=== PATIENT | female | born 1985 | race Asian ===

== ENCOUNTER 2020-01-09 17:25 | Emergency (ER) | payer OTHER, SELFPAY ==
[2020-01-09 17:55] VITALS: BP 127/82; PULSE 72; RESP 16; TEMP 36.6; O2SAT 99; BMI 27.5
--- NOTE | 2020-01-09 18:22 | DI.US.S_ITS ---
PROCEDURE: US OB <= 14 WEEKS FETUS INDICATIONS: BLEEDING OUTSIDE/PRIOR DATING DATA: Last menstrual period (LMP): 11/03/19. LMP-based estimated date of delivery (MARIBEL): 09/16/20. First dating scan (date and location): 01/09/20. Estimated date of delivery (MARIBEL) from first dating scan: 09/08/20. TECHNIQUE: Real-time scanning was performed of the fetus and maternal pelvic organs, with image documentation. Endovaginal scanning was also performed to better visualize the fetus and maternal ovaries. COMPARISON: None. FINDINGS: Embryo: There is a intrauterine gestational sac measuring approximately 5 mm and correlating with approximately 5 weeks and 2 days in estimated sonographic gestational age. No pole is identified. cardiac activity is not visualized. No yolk sac visualized. There is an adjacent subchorionic hemorrhage measuring 2.1 x 2.0 x 2.3 cm in size. Measurement variability in dating: +/- 4 weeks by LMP, +/- 7 days by mean sac diameter (use before 6 weeks gestation if crown-rump length not able to be measured), +/- 5 days by crown-rump length (up to 8 weeks 6 days gestation), +/- 7 days by crown-rump length (up to 13 weeks 6 days gestation). Maternal organs: Left ovaries not visualized. Right ovarian corpus luteal cyst. IMPRESSION: 1. Single intrauterine gestational sac measuring approximately 5 weeks and 2 days. No pole or yolk sac identified. No cardiac activity. Recommend continued clinical surveillance with consideration of serial quantitative hCG measurements to document expected rate of rise. A followup ultrasound in 14 days is also recommended to document expected progression of . 2. Small subchorionic hemorrhage. Dictated by: Michael Farfan M.D. on 01/09/2020 at 21:25 Approved by: Michael Farfan M.D. on 01/09/2020 at 21:32
[2020-01-09 19:14] LABS: Add Manual Diff / Slide Review NO; Basophils Absolute Auto 100 /uL (0-100); Basophils Percent Auto 0.9 % (0-2); Eosinophils Absolute Auto 100 /uL (0-450); Eosinophils Percent Auto 1.6 % (2-4); Hematocrit 39.5 % (36-46); Hemoglobin 13.2 g/dL (12.0-16.0); Lymphocytes Absolute Auto 2000 /uL (1100-4500); Lymphocytes Percent Auto 24.1 % (25-40); Mean Corpuscular HGB Conc 33.5 % (30-36); Mean Corpuscular Hemoglobin 29.4 PG (26-34); Mean Corpuscular Volume 87.7 fL (80-100); Monocytes Absolute Auto 500 /uL (0-900); Monocytes Percent Auto 5.9 % (3-14); Neutrophils Absolute Auto 5500 /uL (1500-7000); Neutrophils Percent Auto 67.5 % (50-75); Platelet Count 288 X10^3/uL (150-400); Red Cell Distribution Width 12.2 % (11.6-14.8); White Blood Cell Count 8.2 X10^3/uL (4.5-11.0)
[2020-01-09 19:44] LABS: HCG Quantitative /Beta subunit 14693 mIU/mL
[2020-01-09 21:16] VITALS: BP 114/71; PULSE 81; RESP 14; O2SAT 99
--- NOTE | 2020-01-09 21:42 | ED.PREGNANCY ---
HPI - <Alirio Frazier [employer] ASSAYER - Last Filed: 01/09/20 23:39> General Chief complaint: Vaginal Bleeding Stated complaint: cramping and bleeding, thinks miscarriage Time Seen by Provider: 01/09/20 18:04 Source: patient and family Mode of arrival: Ambulatory Limitations: no limitations History of Present Illness HPI Narrative: This is a 34 year female, nonsmoker, who presents to ED with significant other with chief complain of small amount of bright red vaginal bleeding and low abdominal cramping pain which started 1 hour prior to arrival to ED. patient reports she is about 5 week with LMP on 12/01/2019 with . Patient states she had positive home test and also at the [facility]. Patient has scheduled ultrasound in 2 days that was arranged by Dr. Alexis Lr at [facility]. Patient states last to was miscarried during early around this time 5th week EGA. Patient had endometriosis surgery about 3 months ago with frequent low abdominal cramping discomfort which has not been changed. Patient reports feeling tired but denies chest pain, breathing difficulty, or dizziness. Patient has been having urinary frequency but denies urgency or dysuria. Hx Last Menstrual Period: 12/01/2019 Patient : Yes Expected Date of Delivery: 09/06/20 Related Data Allergies Allergy/AdvReac Type Severity Reaction Status Date / Time No Known Drug Allergies Allergy Verified 01/09/20 17:55 Review of Systems <Alirio Frazier [employer]ER - Last Filed: 01/09/20 23:39> Review of Systems Narrative: General: Denies fever, chills, (+) fatigue, malaise, sweats. HEENT: Denies sinus pain, ear pain, sore throat, difficulty swallowing, dizziness. Respiratory: Denies dyspnea, cough, wheezing, hemoptysis, sputum. Cardiovascular: Denies chest pain, palpitations, orthopnea, edema. Gastrointestinal: Denies nausea, vomiting, abdominal pain, diarrhea, constipation, melena. : Denies dysuria, (+) frequency, incontinence, hematuria, urinary retention, (+) small vaginal bright red bleed. Musculoskeletal: Denies weakness, joint pain or bony pain. Skin: Denies rash, skin lesions, or other. Neurologic: Denies weakness, headache, numbness, change in speech, confusion, seizures, incoordination. Psychiatric: No concerning psychosocial issues. 12-point review of systems is negative except for those stated above. PMFSH - <Alirio Frazier [employer]ER - Last Filed: 01/09/20 23:39> Past Medical History [place]AUFFEUR history: Reports Spontaneous and Endometriosis Hx Last Menstrual Period: 12/01/2019 Patient : Yes Expected Date of Delivery: 09/06/20 Exam <SARAH OreillyP - Last Filed: 01/09/20 23:39> Narrative Exam Narrative: General appearance: well developed, well nourished, in no acute distress. Head: normocephalic, atraumatic, no scalp lesions, non-tender. Neck/Thyroid: neck supple, full range of motion, no visible masses or meningeal signs. No JVD, non-tender without lymphadenopathy. Skin: no suspicious rashes, lesions over visible areas. Warm and dry and appropriate color for ethnicity. Heart: no clubbing, no cyanosis, no edema. S1 and S2 without murmur, gallop. Lungs: Breathing even and unlabored. No stridor. No accessory muscles used. Able to speak in full sentences. Chest: normal shape and expansion. Abdomen: non-obese, non-distended, no rebound tenderness, soft to palpate. Neurologic: alert and oriented. Cognitive exam, FURNIT[employer]IC and PNS grossly intact on informal exam. Psych: good eye contact, normal affect. Initial Vital Signs Initial Vital Signs: Vital Signs Temperature 97.8 F 01/09/20 17:55 Pulse Rate 72 01/09/20 17:55 Respiratory Rate 16 01/09/20 17:55 Blood Pressure 127/82 01/09/20 17:55 Pulse Oximetry 99 01/09/20 17:55 <Baylee Peck DO - Last Filed: 01/10/20 03:38> Initial Vital Signs Initial Vital Signs: Vital Signs Temperature 97.8 F 01/09/20 17:55 Pulse Rate 72 01/09/20 17:55 Respiratory Rate 16 01/09/20 17:55 Blood Pressure 127/82 01/09/20 17:55 Pulse Oximetry 99 01/09/20 17:55 Scores <Alirio FrazierYOLIE - Last Filed: 01/09/20 23:39> GCS Christopher coma scale eye opening: Spontaneous Christopher coma scale verbal response: Orientated [place] coma scale motor response: Obey commands Christopher coma scale total score: 15 Course <Alirio FrazierYOLIE - Last Filed: 01/09/20 23:39> Orders Ordered: ED Orders 01/09/20 19:01 Complete Blood Count AUTO DIFF Stat HCG Quantitative /Beta subunit Stat Type and Screen Stat Vital Signs Vital signs: Vital Signs - 8 hr 01/09/20 21:16 Pulse Rate 81 Respiratory Rate 14 Blood Pressure [Right Arm] 114/71 Pulse Oximetry 99 <Baylee Peck DO - Last Filed: 01/10/20 03:38> Orders Ordered: ED Orders 01/09/20 19:01 Complete Blood Count AUTO DIFF Stat HCG Quantitative /Beta subunit Stat Type and Screen Stat Vital Signs Vital signs: Vital Signs - 8 hr 01/09/20 21:16 Pulse Rate 81 Respiratory Rate 14 Blood Pressure [Right Arm] 114/71 Pulse Oximetry 99 MDM - OB/Uterine Contractions <Alirio FrazierYOLIE - Last Filed: 01/09/20 23:39> Differential Diagnosis Differential diagnosis: Likely other (Threatened , ectopic , subchorionic hemorrhage) Medical Records Attestation: I reviewed the patient's medical records. Lab Data Attestation: I reviewed the patient's lab results. Result diagrams: 01/09/20 19:01 Labs: Lab Results 01/09/20 01/09/20 01/09/20 Range/Units 19:01 19:01 19:01 WBC 8.2 (4.5-11.0) X10^3/uL RBC 4.50 (4.0-5.2) X10^6/uL Hgb 13.2 (12.0-16.0) g/dL Hct 39.5 (36-46) % MCV 87.7 (80-100) fL MCH 29.4 (26-34) PG MCHC 33.5 (30-36) % RDW 12.2 (11.6-14.8) % Plt Count 288 (150-400) X10^3/uL Neut % (Auto) 67.5 (50-75) % Lymph % (Auto) 24.1 L (25-40) % [place] % (Auto) 5.9 (3-14) % Eos % (Auto) 1.6 L (2-4) % Baso % (Auto) 0.9 (0-2) % Neut # (Auto) 5500 (0629-6845) /uL Lymph # (Auto) 2000 (9713-7039) /uL [place] # (Auto) 500 (0-900) /uL Eos # (Auto) 100 (0-450) /uL Baso # (Auto) 100 (0-100) /uL HCG, Quant 43162 mIU/mL Blood Type O Positive Antibody Screen Negative Point of Care Testing Test Results Positive Urine Dip Bedside Urine Glucose Negative Bedside Urine Bilirubin - Negative Bedside Urine Ketone - Negative Urine Specific [place] 1.025 Bedside Urine Occult Blood +/- Bedside Urine pH 6.0 Bedside Urine Protein - Negative Bedside Urine Urobilinogen - Negative Bedside Urine Nitrite - Negative Bedside Urine Leukocytes - Negative Esterase Imaging Data US - OB: Radiologist's Impression: [address] [address] Ultrasound Report Signed Patient: Carito Kulkarni R#: [id number] : 1985Acct:[id number] Age/Sex: 34 / FDate of Service: 01/09/20 Loc: ED Accession Number: [id number] Procedure: US OB <= 14 weeks fetus Ordering Provider: Alirio Frazier PROCEDURE: US OB <= 14 WEEKS FETUS INDICATIONS: BLEEDING OUTSIDE/PRIOR DATING DATA: Last menstrual period (LMP): 11/03/19. LMP-based estimated date of delivery (MARIBEL): 09/16/20. First dating scan (date and location): 01/09/20. Estimated date of delivery (MARIBEL) from first dating scan: 09/08/20. TECHNIQUE: Real-time scanning was performed of the fetus and maternal pelvic organs, with image documentation. Endovaginal scanning was also performed to better visualize the fetus and maternal ovaries. COMPARISON: None. FINDINGS: Embryo: There is a intrauterine gestational sac measuring approximately 5 mm and correlating with approximately 5 weeks and 2 days in estimated sonographic gestational age. No pole is identified. cardiac activity is not visualized. No yolk sac visualized. There is an adjacent subchorionic hemorrhage measuring 2.1 x 2.0 x 2.3 cm in size. Measurement variability in dating: +/- 4 weeks by LMP, +/- 7 days by mean sac diameter (use before 6 weeks gestation if crown-rump length not able to be measured), +/- 5 days by crown-rump length (up to 8 weeks 6 days gestation), +/- 7 days by crown-rump length (up to 13 weeks 6 days gestation). Maternal organs: Left ovaries not visualized. Right ovarian corpus luteal cyst. IMPRESSION: 1. Single intrauterine gestational sac measuring approximately 5 weeks and 2 days. No pole or yolk sac identified. No cardiac activity. Recommend continued clinical surveillance with consideration of serial quantitative hCG measurements to document expected rate of rise. A followup ultrasound in 14 days is also recommended to document expected progression of . 2. Small subchorionic hemorrhage. Dictated by: Michael Farfan M.D. on 01/09/2020 at 21:25 Approved by: Michael Farfan M.D. on 01/09/2020 at 21:32 MDM Narrative Medical decision making narrative: This is a 34-year-old female with who presents to ED with light bright red vaginal bleeding with low abdominal cramping discomfort about 1 hour prior coming into ED. patient's is managed by Dr. Lr at [facility]. Patient had 2 spontaneous 80 during early . CBC today was stable. [place] [address] today as baseline. OB US <14 weeks shows of intrauterine gestational sac measuring approximately 5 mm correlating with approximately 5 week and 2 day in EGA. However, there is no ports identified. No cardiac activity was visualized. There was no yolk sac visualized. There is a small sub- chorionic hemorrahage measure as 2.1x 2.0x 2.3 cm in size. Patient offered Tylenol for abdominal cramping but she declined. Vital signs stable. Findings were discussed with the patient and spouse. Patient advised to follow-up with Dr. Lr in next 2 days with return precautions discussed. Patient verbalized understanding in agreement with treatment plan. <Baylee Peck, - Last Filed: 01/10/20 03:38> Lab Data Labs: Lab Results 01/09/20 01/09/20 01/09/20 Range/Units 19:01 19:01 19:01 WBC 8.2 (4.5-11.0) X10^3/uL RBC 4.50 (4.0-5.2) X10^6/uL Hgb 13.2 (12.0-16.0) g/dL Hct 39.5 (36-46) % MCV 87.7 (80-100) fL MCH 29.4 (26-34) PG MCHC 33.5 (30-36) % RDW 12.2 (11.6-14.8) % Plt Count 288 (150-400) X10^3/uL Neut % (Auto) 67.5 (50-75) % Lymph % (Auto) 24.1 L (25-40) % [place] % (Auto) 5.9 (3-14) % Eos % (Auto) 1.6 L (2-4) % Baso % (Auto) 0.9 (0-2) % Neut # (Auto) 5500 (6273-4658) /uL Lymph # (Auto) 2000 (3129-4282) /uL [place] # (Auto) 500 (0-900) /uL Eos # (Auto) 100 (0-450) /uL Baso # (Auto) 100 (0-100) /uL HCG, Quant 23296 mIU/mL Blood Type O Positive Antibody Screen Negative Point of Care Testing Test Results Positive Urine Dip Bedside Urine Glucose Negative Bedside Urine Bilirubin - Negative Bedside Urine Ketone - Negative Urine Specific [place] 1.025 Bedside Urine Occult Blood +/- Bedside Urine pH 6.0 Bedside Urine Protein - Negative Bedside Urine Urobilinogen - Negative Bedside Urine Nitrite - Negative Bedside Urine Leukocytes - Negative Esterase Discharge Plan Departure Patient Disposition: Home Clinical Impression: Vaginal bleeding, Threatened Discharge Date/Time: 01/09/20 21:57 Instructions: DI for Threatened , DI for Vaginal Bleeding During Activity Restrictions/Additional Instructions: You have been diagnosed with [vaginal bleeding during first-trimester and threatened . Ultrasound test shows single intrauterine gestational sac for about 5 weeks and 2 days but was unable to see pole or yolk sac today. cardiac activity was not visualized today. Also there was small subchorionic hemorrhage per ultrasound test. Blood count was normal without signs of anemia. Beta HCG count was 14,693 today.]. What to do: *Take your medications as directed. You can take [id number] Tylenol if you have cramping discomfort. 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 Lr in 1-2 days, call for an appointment. Let them know you were seen in the ED and that we asked you to be seen in follow up. *Return to ED if you have any new, worsening, or concerning symptoms, such as [increasing abdominal pain, fever, heavy bleeding, chest pain, breathing difficulty, lightheadedness, or any acute concerns]. Referrals: Alexis Lr [Other]
== END 2020-01-09 21:57 | disposition home or self-care (01) ==
PROVIDERS: Emergency Provider Nurse Practitioner Family
DX: O20.0 Threatened abortion (principal); Z3A.01 Less than 8 weeks gestation of pregnancy
CPT/HCPCS: 36415; 76801; 76830; 81003; 81025; 84702; 85025; 86850; 86900; 86901; 99284